=== PATIENT | female | born 1945 | race Hispanic/Latino ===

== ENCOUNTER 2019-06-16 08:08 | Emergency (ER) | payer MEDICARE, OTHER ==
[~2019-06-16] VITALS: Ht 165.1 cm; Wt 52.6 kg
[~2019-06-16 08:08] MED LIST: CARVEDILOL6.25 MG PO; LEVOTHYROXINE175 MCG PO; LEVOTHYROXINE50 MCG PO; LOVAZA1 GM PO; MELOXICAM15 MG PO; NORVASC10 MG PO; ZOCOR20 MG PO; ZOLOFT50 MG PO
--- OUTSIDE RECORDS SUMMARY | 2019-06-16 08:10 | XMS REPORT ---
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 Allergies, Adverse Reactions, Alerts This patient has no known allergies or adverse reactions. Medications This patient has no known medications. Results Test Description Test Time Test Comments Text Results Atomic Results Result Comments POCT-ACT 2017-03-01 09:11:00 ACTIVATED CLOTTING TIME (BEAKER) (test ubei=482) 246 sec TESTED AT [facility] [address] [facility] [address] BASIC METABOLIC [id number] 07:07:00* Test Item Value Reference Range Comments SODIUM (BEAKER) (test grvs=982) 142 meq/L 136-145 POTASSIUM (BEAKER) (test jwyj=824) 3.6 meq/L 3.5-5.1 CHLORIDE (BEAKER) (test yhwo=468) 107 meq/L 98-107 CO2 (BEAKER) (test eycl=889) 25 meq/L 22-29 BLOOD UREA NITROGEN (BEAKER) (test fwuj=259) 14 mg/dL 7-21 CREATININE (BEAKER) (test ryhe=883) 0.63 mg/dL 0.57-1.25 GLUCOSE RANDOM (BEAKER) (test ppxw=379) 148 mg/dL 70-105 CALCIUM (BEAKER) (test ogcm=453) 9.1 mg/dL 8.4-10.2 EGFR (BEAKER) (test legq=7928) 93 mL/min/1.73 sq m ESTIMATED GFR IS NOT ACCURATE CREATININE CLEARANCE IN PREDICTING GLOMERULAR FILTRATION RATE. ESTIMATED GFR IS NOT APPLICABLE FOR DIALYSIS PATIENTS. CBC W/PLT COUNT & AUTO [id number] 06:46:00* Test Item Value Reference Range Comments WHITE BLOOD CELL COUNT (BEAKER) (test yrgq=811) 6.3 K/ L 4.0-10.0 RED BLOOD CELL COUNT (BEAKER) (test isgq=857) 4.89 M/ L 4.00-5.00 HEMOGLOBIN (BEAKER) (test uvgd=506) 14.9 GM/DL 12.0-15.0 HEMATOCRIT (BEAKER) (test etzj=621) 42.8 % 36.0-45.0 MEAN CORPUSCULAR VOLUME (BEAKER) (test augq=025) 87.5 fL 82.0-99.0 MEAN CORPUSCULAR HEMOGLOBIN (BEAKER) (test hhva=399) 30.5 pg 27.0-33.0 MEAN CORPUSCULAR HEMOGLOBIN CONC (BEAKER) (test vayd=612) 34.8 GM/DL 32.0-36.0 RED CELL DISTRIBUTION WIDTH (BEAKER) (test hnzo=771) 11.7 % 10.3-14.2 PLATELET COUNT (BEAKER) (test jvdn=016) 178 K/CU MM 150-430 MEAN PLATELET VOLUME (BEAKER) (test cddq=361) 7.0 fL 6.5-10.5 NUCLEATED RED BLOOD CELLS (BEAKER) (test yjga=310) 0 /100 WBC 0-0 NEUTROPHILS RELATIVE PERCENT (BEAKER) (test auip=420) 51 % LYMPHOCYTES RELATIVE PERCENT (BEAKER) (test zxag=944) 35 % MONOCYTES RELATIVE PERCENT (BEAKER) (test vccy=284) 9 % EOSINOPHILS RELATIVE PERCENT (BEAKER) (test xavv=563) 3 % BASOPHILS RELATIVE PERCENT (BEAKER) (test haff=673) 1 % NEUTROPHILS ABSOLUTE COUNT (BEAKER) (test hxwi=634) 3.24 K/ L 1.80-8.00 LYMPHOCYTES ABSOLUTE COUNT (BEAKER) (test yhgh=647) 2.22 K/ L 1.48-4.50 MONOCYTES ABSOLUTE COUNT (BEAKER) (test qnvz=034) 0.56 K/ L 0.00-1.30 EOSINOPHILS ABSOLUTE COUNT (BEAKER) (test vktf=101) 0.22 K/ L 0.00-0.50 BASOPHILS ABSOLUTE COUNT (BEAKER) (test inps=412) 0.07 K/ L 0.00-0.20 0.00
[2019-06-16] MEDS ORDERED: JARDIANCE25 MG PO (08:25)
[2019-06-16] MEDS ORDERED: ISOSORBIDE MONO30 MG PO (08:25)
[2019-06-16] MEDS ORDERED: PRAVASTATIN SOD40 MG PO (08:25)
[2019-06-16] MEDS ORDERED: FENOFIBRATE145 M1 PO (08:25)
[2019-06-16] MEDS ORDERED: METFORMIN HCL500 M1 PO (08:25)
[2019-06-16] MEDS ORDERED: CLOPIDOGREL75 MG PO (08:25)
[2019-06-16] MEDS ORDERED: INVOKANA300 MG PO (08:25)
[2019-06-16] MEDS ORDERED: EZETIMIBE10 MG PO (08:25)
[2019-06-16] MEDS ORDERED: ASPIRIN81 MG PO (08:26)
--- NOTE | 2019-06-16 09:16 | Diagnostic Imaging Report ---
LEFT HIP X-RAY - 3 VIEWS HISTORY: ^fall left hip pain COMPARISON: None available. FINDINGS: Bones: No acute displaced fracture. Osseous alignment is within normal limits. Joints: The joint spaces are well-maintained. Soft tissues: The soft tissues appear unremarkable. IMPRESSION: No acute radiographic abnormality. Signed by: Dr. Sylvia Dillon M.D. on 06/16/2019 9:13 AM
--- NOTE | 2019-06-16 09:30 | NUR ---
DR. TODD AT BEDSIDE UPDATING PATIENT ON PLAN OF CARE
[2019-06-16] MEDS ORDERED: AMLODIPINE BESYLATE 5 MG TAB ONE (11:14)
== END 2019-06-16 09:50 | disposition home or self-care (01) ==
LOC: ER 08:08
DX: S30.0XXA Contusion of lower back and pelvis, initial encounter (principal); W01.0XXA Fall on same level from slipping, tripping and stumbling without subsequent striking against object, initial encounter; Y93.E1 Activity, personal bathing and showering; Y92.002 Bathroom of unspecified non-institutional (private) residence as the place of occurrence of the external cause; I10 Essential (primary) hypertension; E11.9 Type 2 diabetes mellitus without complications
CPT/HCPCS: 99283

== ENCOUNTER 2021-09-17 10:58 | Emergency (ER) | payer MEDICARE, OTHER ==
[~2021-09-17] VITALS: Ht 165.1 cm; Wt 52.3 kg
[~2021-09-17 10:58] MED LIST changes: +ASPIRIN81 MG PO; +CLOPIDOGREL75 MG PO; +EZETIMIBE10 MG PO; +FENOFIBRATE145 M1 PO; +INVOKANA300 MG PO; +ISOSORBIDE MONO30 MG PO; +JARDIANCE25 MG PO; +METFORMIN HCL500 M1 PO; +PRAVASTATIN SOD40 MG PO
[2021-09-17] MEDS ORDERED: RANEXA1000 MG PO (11:37)
[2021-09-17] MEDS ORDERED: OS-CAL 500+D T1 EACH PO (11:37)
[2021-09-17] MEDS ORDERED: ATACAND HCT 321 EAC1 (11:37)
[2021-09-17] MEDS ORDERED: VASCEPA1 GM (11:37)
[2021-09-17] MEDS ORDERED: VITAMIN D250 MC1 (11:37)
[2021-09-17] MEDS ORDERED: MULTI-VITAMIN1 EACH PO (11:37)
== END 2021-09-17 12:32 | disposition home or self-care (01) ==
LOC: FSED 11:40
DX: S00.03XA Contusion of scalp, initial encounter (principal); S50.312A Abrasion of left elbow, initial encounter; W17.89XA Other fall from one level to another, initial encounter; Y93.01 Activity, walking, marching and hiking; Y92.480 Sidewalk as the place of occurrence of the external cause; I10 Essential (primary) hypertension; E11.9 Type 2 diabetes mellitus without complications; E03.9 Hypothyroidism, unspecified; F32.A Depression, unspecified
CPT/HCPCS: 70450; 99283

== ENCOUNTER 2022-01-11 12:32 | Emergency (ER) | payer MEDICARE, OTHER ==
[~2022-01-11] VITALS: Ht 165.1 cm; Wt 52.2 kg
[~2022-01-11 12:32] MED LIST changes: +ATACAND HCT 321 EAC1; +MULTI-VITAMIN1 EACH PO; +OS-CAL 500+D T1 EACH PO; +RANEXA1000 MG PO; +VASCEPA1 GM; +VITAMIN D250 MC1
== END 2022-01-11 15:20 | disposition home or self-care (01) ==
LOC: FSED 12:45
DX: S20.212A Contusion of left front wall of thorax, initial encounter (principal); W01.198A Fall on same level from slipping, tripping and stumbling with subsequent striking against other object, initial encounter; Y93.01 Activity, walking, marching and hiking; Y92.89 Other specified places as the place of occurrence of the external cause; I10 Essential (primary) hypertension; E11.9 Type 2 diabetes mellitus without complications; E03.9 Hypothyroidism, unspecified; F32.A Depression, unspecified
CPT/HCPCS: 71101; 99282

== ENCOUNTER 2022-11-14 16:33 | Emergency (ER) | payer MEDICARE, OTHER ==
[~2022-11-14] VITALS: Ht 165.1 cm; Wt 61.0 kg
[2022-11-14] MEDS ORDERED: CARVEDILOL6.25 MG (17:06)
[2022-11-14] MEDS ORDERED: TRESIBA100 UNIT/1 SQ (17:06)
[2022-11-14] MEDS ORDERED: CRESTOR10 MG PO (17:06)
[2022-11-14] MEDS ORDERED: CYCLOBENZAPRINE5 MG PO (17:39)
[2022-11-14] MEDS ORDERED: NAPROSYN500 MG PO (17:40)
[2022-11-14] MEDS ORDERED: ACETAMINOPHEN-1 EAC4 PO (17:42)
== END 2022-11-14 17:59 | disposition home or self-care (01) ==
LOC: FSED 16:54
DX: M47.898 Other spondylosis, sacral and sacrococcygeal region (principal); M62.830 Muscle spasm of back; I10 Essential (primary) hypertension; E11.9 Type 2 diabetes mellitus without complications
CPT/HCPCS: 99283

== ENCOUNTER 2024-12-21 12:37 | Emergency (ER) | payer MEDICARE, OTHER ==
[~2024-12-21] VITALS: Ht 165.1 cm; Wt 63.5 kg
[~2024-12-21 12:37] MED LIST changes: +ACETAMINOPHEN-1 EAC4 PO; +CARVEDILOL6.25 MG; +CRESTOR10 MG PO; +CYCLOBENZAPRINE5 MG PO; +NAPROSYN500 MG PO; +TRESIBA100 UNIT/1 SQ
[2024-12-21 12:45] VITALS: TEMP 98.1
[2024-12-21] MEDS ORDERED: TRAMADOL HCL 50 MG TAB PO ONE (12:45)
[2024-12-21] MEDS: ONDANSETRON HCL 4 MG ORAL DISINTEGRATING TAB PO ONE (12:52)
[2024-12-21 13:57] LABS: BASOPHILS % 0.4 % (0.0-1.0); EOSINOPHILS % 0.4 % (0.0-6.0); HEMATOCRIT 37.8 % (34.2-44.1); HEMOGLOBIN 13.2 g/dL (12.0-16.0); LYMPHOCYTES # (AUTO) 1.5 (1.0-3.2); LYMPHOCYTES % 18.7 % (18.0-39.1); MEAN CORPUSCULAR HEMOGLOBIN 29.8 pg (28-32); MEAN CORPUSCULAR HGB CONC 34.9 g/dL (31-35); MEAN CORPUSCULAR VOLUME 85.3 fL (81-99); MONOCYTES # (AUTO) 0.4 (0.2-0.8); MONOCYTES % 4.6 % (4.4-11.3); NEUTROPHILS # (AUTO) 6.1 (2.1-6.9); NEUTROPHILS % 75.5 % (38.7-80.0); PLATELET COUNT 194 x10e3/uL (140-360); RED BLOOD COUNT 4.43 x10e6/uL (3.6-5.1); RED CELL DISTRIBUTION WIDTH 12.2 % (11.7-14.4); WHITE BLOOD COUNT 8.11 x10e3/uL (4.8-10.8)
[2024-12-21 14:17] LABS: INR 0.94; PROTHROMBIN TIME 13.2 seconds (11.9-14.5)
[2024-12-21 14:18] LABS: PARTIAL THROMBOPLASTIN TIME 38.8 seconds (23.8-35.5)
[2024-12-21 14:25] VITALS: PULSE 56; RESP 21
[2024-12-21 14:29] LABS: ALBUMIN 4.1 g/dL (3.5-5.0); ALBUMIN/GLOBULIN RATIO 1.2 (0.8-2.0); ANION GAP 18.3 mmol/L (8-16); BILIRUBIN,TOTAL 0.7 mg/dL (0.2-1.2); CALCIUM 9.7 mg/dL (8.4-10.2); CREATININE, SERUM 0.79 mg/dL (0.57-1.11); TOTAL PROTEIN 7.6 g/dL (6.5-8.1)
[2024-12-21 14:30] LABS: POTASSIUM 3.3 mmol/L (3.5-5.1)
[2024-12-21] MEDS ORDERED: ONDANSETRON ODT4 MG PO (15:28)
[2024-12-21 16:03] VITALS: BP 124/62; PULSE 59; RESP 19; TEMP 98.1; O2SAT 100
== END 2024-12-21 16:05 | disposition home or self-care (01) ==
LOC: ER 12:44
DX: S02.2XXA Fracture of nasal bones, initial encounter for closed fracture (principal); S06.0X0A Concussion without loss of consciousness, initial encounter; W01.0XXA Fall on same level from slipping, tripping and stumbling without subsequent striking against object, initial encounter; Y93.01 Activity, walking, marching and hiking; Y92.89 Other specified places as the place of occurrence of the external cause; I10 Essential (primary) hypertension; E11.65 Type 2 diabetes mellitus with hyperglycemia; E78.5 Hyperlipidemia, unspecified; E03.9 Hypothyroidism, unspecified; F32.A Depression, unspecified; R94.31 Abnormal electrocardiogram [ECG] [EKG]; Z86.73 Personal history of transient ischemic attack (TIA), and cerebral infarction without residual deficits; Z95.5 Presence of coronary angioplasty implant and graft
CPT/HCPCS: 36415; 70450; 70486; 71045; 72125; 80053; 84484; 85025; 85610; 85730; 93005; 99284; Q0162